=== PATIENT | male | born 1965 | race Caucasian/White ===

== ENCOUNTER 2020-12-06 09:04 | Day surgery (SDC) | payer MEDICAID ==
[~2020-12-06 09:04] MED LIST: Sodium Chloride 0.9% 10 ML Syringe FLUSH PRN
[2020-12-06] MEDS ORDERED: Succinylcholine 200 MG/10 ML MDV IV ONE (09:05)
[2020-12-06] MEDS ORDERED: Rocuronium 50 MG/5 ML Vial IV ONE (09:05)
[2020-12-06] MEDS ORDERED: Ondansetron 4 MG/2 ML SDV IV ONE (09:05)
[2020-12-06] MEDS ORDERED: Dexamethasone 4 MG/ML SDV IV ONE (09:05)
[2020-12-06] MEDS ORDERED: fentaNYL 250 MCG/5 ML SDV ONE (10:05)
[2020-12-06] MEDS ORDERED: Midazolam 1 MG/ML 2 ML SDV ONE (10:05)
[2020-12-06] MEDS ORDERED: Propofol 200 MG/20 ML SDV ONE (10:05)
[2020-12-06] MEDS ORDERED: Lactated Ringers 1,000 ML ONE (10:05)
[2020-12-06] MEDS: Lactated Ringers 1,000 ML IV SCH (10:21)
--- NOTE | 2020-12-06 10:35 | PCM.PN ---
- General Info Date of Service: 12/06/20 - Review of Systems Systems Review Comment:: 55-year-old male here for repair of bilateral inguinal hernias. Patient has been having some lower abdominal and genital pain and CT scan has documented bilateral inguinal hernias. He is medically stable to proceed today. His recent history and physical is reviewed and no significant changes are noted. The hernia sites are confirmed with the patient and marked. I have again reviewed the proposed operative procedure as well as the jess and postoperative expectations and instructions. His questions were answered. He agrees to proceed. - Patient Data Vitals - Most Recent: Last Vital Signs Temp 97.4 F 12/06/20 09:33 Pulse 75 12/06/20 09:33 Resp 20 12/06/20 09:33 BP 131/84 12/06/20 09:33 Pulse Ox 95 12/06/20 09:33 Weight - Most Recent: 92.533 kg Med Orders - Current: Current Medications Lactated Ringer's (Ringers, Lactated) 1,000 mls @ 50 mls/hr IV ASDIRECTED [facility] Last Admin: 12/06/20 10:21 Dose: 50 mls/hr Documented by: Sodium Chloride (Sodium Chloride 0.9% 10 Ml Syringe) 10 ml FLUSH Q8HR PRN PRN Reason: keep vein open Discontinued Medications Fentanyl (Fentanyl 250 Mcg/5 Ml Sdv) Confirm Administered Dose 250 mcg .ROUTE .STK-MED ONE Stop: 12/06/20 10:06 Lactated Ringer's (Ringers, Lactated) Confirm Administered Dose 1,000 mls @ as directed .ROUTE .STK-MED ONE Stop: 12/06/20 10:06 Midazolam HCl (Midazolam 1 Mg/Ml 2 Ml Sdv) Confirm Administered Dose 2 mg .ROUTE .STK-MED ONE Stop: 12/06/20 10:06 Propofol (Propofol 200 Mg/20 Ml Sdv) Confirm Administered Dose 200 mg .ROUTE .STK-MED ONE Stop: 12/06/20 10:06 Sepsis Event Note - Focused Exam Vital Signs: Vital Signs Temp Pulse Resp BP Pulse Ox 12/06/20 09:33 97.4 F 75 20 131/84 95 - Problem List Review Problem List Initiated/Reviewed/Updated: Yes - My Orders Last 24 Hours: My Active Orders 12/05/20 15:42 Resuscitation Status Routine 12/06/20 Breakfast Nothing Per Oral Diet [DIET] 12/06/20 09:00 Antiembolic Devices [RC] PER UNIT ROUTINE Communication Order [RC] ROUTINE Patient to Empty Bladder [RC] ASDIRECTED Peripheral IV Care [RC] . DIRECTED Lactated Ringers [Ringers, Lactated] 1,000 ml IV ASDIRECTED Sodium Chloride 0.9% [Saline Flush] 10 ml FLUSH Q8HR PRN Peripheral IV Insertion Adult [OM.PC] Routine 12/06/20 09:30 Sequential Compression Device [OM.PC] Routine 12/06/20 10:00 Verify Patient Consent Obtain [RC] ASDIRECTED - Assessment Assessment:: Bilateral inguinal hernias - Plan Plan:: Bilateral inguinal hernia repair
[2020-12-06] MEDS ORDERED: ceFAZolin 1 GM Vial ONE (10:37)
[2020-12-06] MEDS ORDERED: Bupivacaine 0.5%/EPINEPHrine 1:200,000 30 ML SDV ONE (10:37)
[2020-12-06] MEDS ORDERED: Bacitracin/Neomycin/Polymyxin B Oint 0.9 GM U/D Packet ONE (10:38)
[2020-12-06] MEDS: Bupivacaine 0.5%/EPINEPHrine 1:200,000 30 ML SDV INFILT ONE (11:06)
[2020-12-06] MEDS: ceFAZolin 1 GM Vial ONE (11:06)
[2020-12-06] MEDS: Sodium Chloride 0.9% 20 ML SDV ONE (11:06)
[2020-12-06] MEDS: Bacitracin/Neomycin/Polymyxin B Oint 0.9 GM U/D Packet TOP ONE (11:06)
[2020-12-06] MEDS ORDERED: Ketorolac 30 MG/ML SDV ONE (13:43)
--- NOTE | 2020-12-06 13:50 | PCM.OPNOTE ---
- General Post-Op/Procedure Note Date of Surgery/Procedure: 12/06/20 Operative Procedure(s): Repair bilateral inguinal hernias with mesh Findings: Bilateral moderate sized direct inguinal hernias with moderate sized cord lipomas Pre Op Diagnosis: Bilateral inguinal hernia Post-Op Diagnosis: Same Anesthesia Technique: General ET Tube Primary Surgeon: Srini Izaguirre Pathology: Right and left cord lipomas EBL in mLs: 25 Complications: None Condition: Good
[2020-12-06] MEDS: Morphine 4 MG/ML Syringe IVPUSH PRN (14:05)
[2020-12-06] MEDS: Morphine 2 MG/ML SYRINGE IVPUSH PRN (14:15)
[2020-12-06] MEDS: Acetaminophen/HYDROcodone 325-5 MG Tab PO PRN (16:34)
--- NOTE | 2020-12-06 19:01 | OR ---
DATE OF SURGERY: 12/06/2020 SURGEON: Srini Izaguirre MD PREOPERATIVE DIAGNOSIS: Bilateral inguinal hernias. POSTOPERATIVE DIAGNOSIS: Bilateral direct inguinal hernias and bilateral cord lipomas. OPERATION PERFORMED: Repair of bilateral inguinal hernias with mesh. INDICATIONS FOR SURGERY: This 55-year-old male has been having symptoms of pain in his groin and genital area. Workup has included a CT scan which has identified bilateral inguinal hernias. After review of management options, the patient has agreed to proceed with bilateral inguinal hernia repair. FINDINGS: In the floor of both inguinal canals, there is moderate-sized direct inguinal hernias noted laterally in the floor of the inguinal canals. The preperitoneal fat is protruding through both of these hernias to moderate degree. No significant indirect component is identified in either side. Both sides have a moderate to large size cord lipoma. Structures otherwise appeared normal. No indirect component is identified on either side. PROCEDURE IN DETAIL: The patient was taken to the operating room. He was given general endotracheal anesthesia. The inguinal region was sterilely prepped with Betadine and draped. Attention was first turned to the left groin where a linear left groin incision was made. This was carried down to the external oblique fascia which was incised over and parallel to the course of the underlying spermatic cord. Spermatic cord was isolated, explored and found to have no indirect component, but a moderate-sized cord lipoma was identified and this was from cord structures down to the level of the internal ring, where it was amputated above clamps with ties of 2-0 Vicryl used for hemostasis. The direct component of the hernia was identified and a repair of the floor of the inguinal canal was carried out by securing a large size keyhole-shaped piece of polypropylene mesh in position. This was secured in place with interrupted 0 Prolene sutures to the Uriel's ligament medial to the femoral vessels and the shelving portion of the inguinal ligament anterior to these vessels with interrupted 0 Prolene. The superior edge of the mesh was secured down to the internal oblique fascia near its fusion with the external oblique fascia, also with interrupted 0 Prolene. The spermatic cord was passed through the keyhole defect and tails of the mesh were secured laterally with 0 prolene recreating the internal ring such that would admit one fingertip alongside the spermatic cord. The wound was irrigated and then closed with running 2-0 Vicryl to reapproximate the edges of the external oblique fascia, recreating the external ring. The wound was infiltrated with Marcaine and then closure was completed by approximating the Brittany's fascia with interrupted 4-0 Vicryl and the skin with a running 4-0 Vicryl subcuticular stitch. Attention was turned to the right groin where a linear right groin incision was made and this was also carried down to the external oblique fascia which was incised and the spermatic cord was isolated and explored. Again on this side, no indirect component to the hernia is identified, but a moderate-sized cord lipoma is noted. This was dissected free from the cord structures down to the level of the internal ring and then amputated above clamps at this level. Ties of 2-0 Vicryl were used for hemostasis. The floor of the inguinal canal was explored and a direct sac is identified. The floor of this inguinal canal was also reinforced on this side with a large size keyhole-shaped piece of polypropylene mesh. This was secured in position along it's inferior margin to the Uriel's ligament medial to the femoral vessels and to the shelving portion of the inguinal ligament anterior to these vessels with interrupted 0 Prolene. The superior edge of the mesh was secured down to the internal oblique fascia near its fusion with the external oblique fascia also with interrupted 0 Prolene. The spermatic cord was passed through the keyhole defect and the tails of the mesh were then attached to each other, recreating the internal ring such that it would admit one fingertip alongside this spermatic cord. This wound was also irrigated and then closed by reapproximating the external oblique fascia with running 2-0 Vicryl. The wound was infiltrated with Marcaine. Closure was completed by approximating the Brittany's fascia with interrupted 4-0 Vicryl, the skin with a running 4-0 Vicryl subcuticular stitch. Steri-Strips and benzoin applied to both incisions followed by antibiotic ointment and sterile dressings. The patient was then awakened, extubated, and taken from the operating room in satisfactory condition. ESTIMATED BLOOD LOSS: 25 mL. COMPLICATIONS: None. PROGNOSIS: Good. /[id number]/MODL MTDD
== END 2020-12-06 17:50 | disposition home or self-care (01) ==
LOC: KA.SDS 09:04
PROVIDERS: ATTEND Surgery
DX: K40.20 Bilateral inguinal hernia, without obstruction or gangrene, not specified as recurrent (principal); D17.6 Benign lipomatous neoplasm of spermatic cord; I10 Essential (primary) hypertension; Z90.49 Acquired absence of other specified parts of digestive tract; Z87.891 Personal history of nicotine dependence; Z79.899 Other long term (current) drug therapy
CPT/HCPCS: A9270-GY; J0330; J0690; J1100; J1885; J2250; J2270; J2405; J2704; J3010; J3490; J7120